=== PATIENT | female | born 1970 | race Caucasian/White ===

== ENCOUNTER → 2021-07-21 | Emergency (ER) | payer SELFPAY ==
[~2021-07-21] VITALS: Ht 167.6 cm; Wt 50.8 kg
[2021-07-21 11:39] VITALS: BP 148/107
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
--- NOTE | 2021-07-21 12:05 | NUR ---
NATHANIEL UNIT [id number] SPEAKING WITH PTWilfredo
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
--- NOTE | 2021-07-21 12:39 | NUR ---
THE PATIENT VERBALIZED WANTING TO SEE A NETWORK OPERATIONS SPECIALIST. NETWORK OPERATIONS SPECIALIST ZEKE IS MADE AWARE.
--- NOTE | 2021-07-21 12:56 | NUR ---
TONE Jurado here to see pt. (See her notes)
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
--- NOTE | 2021-07-21 12:58 | NUR ---
Patient discharged to home in stable condition. Written and verbal after care instructions given- Refused to sign BUT verbalizes understanding of instruction.
--- NOTE | 2021-07-22 10:38 | NUR ---
[facility]: Per patient's requested yesterday SW faxed clinicals to [facility] TEL: [phone] FAX: [phone] FOR RESIDENTIAL TREATMENT.
== END | disposition home or self-care (01) ==
LOC: ER 17:54
DX: S00.83XA Contusion of other part of head, initial encounter (principal); H57.11 Ocular pain, right eye; F43.10 Post-traumatic stress disorder, unspecified; Z59.00 Homelessness unspecified; Y08.89XA Assault by other specified means, initial encounter; Y93.89 Activity, other specified; Y92.521 Bus station as the place of occurrence of the external cause; Y99.8 Other external cause status